=== PATIENT | female | born 2000 | race Two or more races ===

== ENCOUNTER 2024-06-25 01:08 | Emergency (ER) | payer OTHER ==
[~2024-06-25] VITALS: Ht 162.6 cm; Wt 63.5 kg
[2024-06-25 01:18] VITALS: BP 110/75; O2SAT 100
[2024-06-25] MEDS ORDERED: GUAIFENESIN 200 MG/10 ML BLIST.PACK PO STA (02:53)
[2024-06-25] MEDS ORDERED: DIPHENHYDRAMINE HCL 12.5 MG/5 ML BLIST.PACK PO STA (02:53)
[2024-06-25 03:26] LABS: HEMATOCRIT 32.5 % (36.0-45.00); HEMOGLOBIN 10.6 g/dL (12.0-15.00); MEAN CELL VOLUME 87.1 fL (80.00-100.00); MEAN CORPUSCULAR HEMOGLOBIN 28.4 pg (27.00-32.0); MEAN CORPUSCULAR HGB CONC 32.6 g/dl (32.0-36.0); PLATELET COUNT 232 K/uL (150-450); RED BLOOD COUNT 3.73 M/uL (4.00-6.00); RED CELL DISTRIBUTION WIDTH 13.6 % (11.5-14.5)
[2024-06-25] MEDS ORDERED: PHENAGIL TABLE1 EACH PO (04:22)
[2024-06-25] MEDS ORDERED: ZYNCOF 20-400120 ML PO (04:22)
[2024-06-25] MEDS ORDERED: OSEL75CA PO (04:22)
== END 2024-06-25 04:30 ==
LOC: ER 01:10
PROVIDERS: General Practice
DX: B34.9 Viral infection, unspecified (principal); Z20.822 Contact with and (suspected) exposure to COVID-19